=== PATIENT | male | born 1980 | race Caucasian/White ===

== ENCOUNTER 2021-10-04 13:29 | Day surgery (SDCO) | payer MEDICARE ==
[~2021-10-04] VITALS: Ht 182.9 cm; Wt 101.4 kg
[2021-10-04 14:44] LABS: BASOPHIL 0.2 % (0-2); EOSINOPHIL 0 % (0-5); HCT 48.1 % (42.0-52.0); HGB 16.1 g/dl (13.2-18.0); LYMPHOCYTE 5.1 % (15-48); MCH 31.6 pg (25.0-31.0); MCHC 33.5 g/dL (32.0-36.0); MCV 94.3 fL (78.0-100.0); MONOCYTE 5.1 % (0-12); MPV 10.3 fL (6.0-9.5); NEUTROPHIL 89.1 % (41-80); NRBC 0; PLT 154 K/uL (150-400); RDW 13.3 % (11.5-14.0); WBC 5.7 K/uL (4.0-10.5)
[2021-10-04 15:02] LABS: ALBUMIN 3.1 g/dL (3.4-5.0); BILIRUBIN - TOTAL 0.3 mg/dL (0.2-1.0); C-REACTIVE PROTEIN 5.7 mg/dL (<=0.90); CREATININE 1.17 mg/dL (0.67-1.17); GLOBULIN (CALCULATION) 3.6 g/dL; POTASSIUM 4.1 mmol/L (3.5-5.1); TOTAL PROTEIN 6.7 g/dL (6.4-8.2)
[2021-10-04 15:06] LABS: LACTIC ACID 1.7 mmol/L (0.4-1.9)
[2021-10-04] MEDS ORDERED: HCTZ25 MG PO (23:27)
[2021-10-04] MEDS ORDERED: ASPIRIN EC81 MG PO (23:28)
[2021-10-04] MEDS ORDERED: UROCIT-K10 MEQ PO (23:29)
[2021-10-04] MEDS ORDERED: PROTONIX 40MG T40 MG PO (23:29)
[2021-10-04] MEDS ORDERED: PROAIR HFA8.5 GM INH (23:33)
[2021-10-05 06:52] LABS: BASOPHIL 0 % (0-2); EOSINOPHIL 0 % (0-5); HCT 45.6 % (42.0-52.0); HGB 15.3 g/dl (13.2-18.0); LYMPHOCYTE 8.7 % (15-48); MCH 31.9 pg (25.0-31.0); MCHC 33.6 g/dL (32.0-36.0); MCV 95.2 fL (78.0-100.0); MPV 10.3 fL (6.0-9.5); NEUTROPHIL 84.6 % (41-80); NRBC 0; PLT 154 K/uL (150-400); RBC 4.79 M/uL (4.70-6.00); RDW 13.4 % (11.5-14.0); WBC 5.5 K/uL (4.0-10.5)
[2021-10-05 07:18] LABS: BUN/CREAT RATIO (CALC) 9.6 RATIO; CREATININE 1.15 mg/dL (0.67-1.17)
--- NOTE | 2021-10-06 11:42 | NUR ---
10/06 A referral was made to [facility] for 02 at 2 L per patient choice. A report was given to SLICK eBcerra RN.
[2021-10-06] MEDS ORDERED: DEXAMETHASONE 2M2 MG PO (11:54)
== END 2021-10-06 15:10 | disposition home or self-care (01) ==
LOC: FER 13:29 → FTCU 16:45
PROVIDERS: Emergency Medicine; Nurse Practitioner; ADMIT Internal Medicine
DX: U07.1 COVID-19 (principal); J12.82 Pneumonia due to coronavirus disease 2019; J96.01 Acute respiratory failure with hypoxia
CPT/HCPCS: 36415; 36600; 71045; 71275; 80048; 80053; 82803; 83605; 84145; 84484; 85025; 85379; 86140; 93005; 94010; 94640; 94667; 94668; C9399; G0378; J1100; J1650; J2405; J2543; J2930; J3370; J7030; J7050; Q9967; U0002